=== PATIENT | female | born 1965 | race Caucasian/White ===

== ENCOUNTER → 2018-07-27 | Day surgery (SDC) | payer BC ==
[~2018-07-27] MED LIST: LIDOCAINE 2% MDV (20MG/ML) 20ML VIAL IV ONE; PROPOFOL 10 MG/ML VIAL IV ONE
--- NOTE | 2018-08-01 09:30 | Operative Note ---
DATE OF SURGERY: 07/27/2018 SURGEON: Godwin Dos Santos MD OPERATION: ESOPHAGOGASTRODUODENOSCOPY. INDICATIONS: This is a 53-year-old female with history of intermittent episodes of dysphagia to solids who presented for esophagogastroduodenoscopy. POSTOPERATIVE DIAGNOSES: 1. LA class C ulcerative distal esophagitis. 2. Erosive gastritis. 3. Duodenitis. ANESTHESIA: Sedation is per Anesthesia. Pulse oximetry was monitored throughout the procedure to maintain O2 saturation of 90% or greater. Supplemental oxygen was administered via nasal cannula. Cardiac and vital signs were monitored throughout the duration of the procedure, and they were stable. The procedure of esophagogastroduodenoscopy and risks and benefits of the procedure, including the risk of bleeding and perforation, among others, were explained to the patient who voiced understanding and agreed to have the procedure done. Physical examination was performed, and the patient was found stable for sedation. PROCEDURE: The patient was placed in the left lateral position. Sedation was initiated. A plastic bite block was inserted into the oral cavity. The Olympus [id number] gastroscope was introduced into the oral cavity and advanced to the proximal esophagus without difficulty. The esophageal mucosa was carefully examined upon introduction of the gastroscope. The proximal and mid esophageal mucosa appeared normal. In the distal esophagus there was LA class C esophagitis with no specific stricture. The gastroscope was then advanced into the stomach, and surveillance of the stomach revealed diffuse erythema with erosions along the gastric body and antrum. The gastroscope was then advanced to the descending duodenum without difficulty. The duodenal bulb and descending duodenum appeared normal. The gastroscope was then withdrawn into the stomach and retroflexion was performed. There were no other lesions noted. There was diffuse erythema along the duodenal bulb. Multiple duodenal and gastric as well as distal esophageal biopsies were obtained. She remained with stable vital signs and Gomez dilator size 60-Panamanian was passed into the stomach with minimal difficulty. The Gomez dilator was then withdrawn and the procedure was terminated. The patient tolerated procedure well without any immediate complications. The patient remained with stable vital signs and was transferred to the recovery room. RECOMMENDATIONS: 1. The patient is to be on omeprazole 20 mg p.o. b.i.d. 2. We will see her back in the office as needed. Thank you for allowing me to participate in the care of your patient. CC: DO CHENTE Talavera
== END | disposition home or self-care (01) ==
LOC: HOP 09:44
PROVIDERS: ATTEND Internal Medicine Gastroenterology
DX: R13.10 Dysphagia, unspecified (principal); K22.10 Ulcer of esophagus without bleeding; K29.60 Other gastritis without bleeding; K29.80 Duodenitis without bleeding

== ENCOUNTER 2019-01-27 10:10 | Emergency (ER) | payer SELFPAY ==
--- NOTE | 2019-01-27 12:06 | Emergency Department Record ---
History of Present Illness - General Chief Complaint: Ankle/Foot Injury Stated Complaint: LT FOOT INJURY Time Seen by Provider: 01/27/19 11:56 Source: Patient, RN notes reviewed Mode of Arrival: Ambulatory - History of Present Illness Initial Comments: inversion injury of the ankle, left, 9 days ago.Swollen lateral side. No knee pain now and knee ligaments intact.Previous injury 20 years ago andle fracture Injury: Ankle: Left Type of Injury: Eversion - Related Data Home Medications Medication Instructions Recorded Confirmed Last Taken Duloxetine HCl [Cymbalta] 60 mg PO DAILY 01/27/19 01/27/19 01/27/19 Gabapentin [Neurontin] 900 mg PO QHS 01/27/19 01/27/19 01/26/19 Allergies Allergy/AdvReac Type Severity Reaction Status Date / Time No Known Drug Intolerances Allergy Unknown PT UNSURE Verified 01/27/19 11:53 OF REACTION Review of Systems Reviewed: No additional complaints except as noted below Constitutional: Reports: As per HPI. Denies: Chills, Fever, Malaise, Night sweats, Weakness, Weight change Eyes: Reports: As per HPI. Denies: Eye discharge, Eye pain, Photophobia, Vision change ENT: Reports: As per HPI. Denies: Congestion, Dental pain, Ear pain, Epistaxis, Hearing loss, Throat pain Respiratory: Reports: As per HPI. Denies: Cough, Dyspnea, Hemoptysis, Stridor, Wheezes Cardiovascular: Reports: As per HPI. Denies: Arrhythmia, Chest pain, Dyspnea on exertion, Edema, Murmurs, Orthopnea, Palpitations, Paroxysmal nocturnal dyspnea, Rheumatic Fever, Syncope Endocrine: Reports: As per HPI. Denies: Fatigue, Heat or cold intolerance, Polydipsia, Polyuria Gastrointestinal: Reports: As per HPI. Denies: Abdominal pain, Constipation, Diarrhea, Hematemesis, Hematochezia, Melena, Nausea, Vomiting Genitourinary: Reports: As per HPI. Denies: Abnormal menses, Discharge, Dy spareunia, Dysuria, Frequency, Hematuria, Incontinence, Retention, Urgency Musculoskeletal: Reports: As per HPI, Other (ankle pain left). Denies: Arthralgia, Back pain, Gout, Joint swelling, Myalgia, Neck pain Skin: Reports: As per HPI. Denies: Bruising, Change in color, Change in hair/nails, Lesions, Pruritus, Rash Neurological: Reports: As per HPI. Denies: Abnormal gait, Confusion, Headache, Numbness, Paresthesias, Seizure, Tingling, Tremors, Vertigo, Weakness Psychiatric: Reports: As per HPI. Denies: Anxiety, Auditory hallucinations, Depression, Homicidal thoughts, Suicidal thoughts, Visual hallucinations Hematological/Lymphatic: Reports: As per HPI. Denies: Anemia, Blood Clots, Easy bleeding, Easy bruising, Swollen glands Past Medical History - SOCIAL HISTORY Smoking Status: Former smoker - RESPIRATORY Hx Respiratory Disorders: No - CARDIOVASCULAR Hx Cardio Disorders: No - NEURO Hx Neuro Disorders: No - GI Hx GI Disorders: Yes Hx Reflux: Yes Comment:: difficulty/painful swallowing - Hx Genitourinary Disorders: No Comment:: menopausal - ENDOCRINE Hx Endocrine Disorders: Yes Comment:: osteopenia - MUSCULOSKELETAL Hx Musculoskeletal Disorders: Yes Hx Arthritis: Yes Hx Fibromyalgia: Yes - PSYCH Hx Psych Problems: Yes Hx Anxiety: Yes Hx Depression: Yes - HEMATOLOGY/ONCOLOGY Hx Hematology/Oncology Disorders: Yes Hx Bruising: Yes Hx Blood Transfusions: No Physical Exam - General General Appearance: Alert, Oriented x3, Cooperative, No acute distress - Head Head exam: Normal inspection - Eye Eye exam: Normal appearance, PERRL Pupils: Normal accommodation - ENT ENT exam: Normal exam, Mucous membranes moist, Normal external ear exam, Normal orophraynx, TM's normal bilaterally Ear exam: Normal external inspection. negative: External canal tenderness Nasal Exam: Normal inspection. negative: Discharge, Sinus tenderness Mouth exam: Normal external inspection, Tongue normal Teeth exam: Normal inspection. negative: Dental caries Throat exam: Normal inspection. negative: Tonsillar erythema, Tonsillar exudate - Neck Neck exam: Normal inspection, Full ROM. negative: Tenderness - Respiratory Respiratory exam: Normal lung sounds bilaterally. negative: Respiratory distress - Cardiovascular Cardiovascular Exam: Regular rate, Normal rhythm, Normal heart sounds - GI/Abdominal GI/Abdominal exam: Soft, Normal bowel sounds. negative: Tenderness - Rectal Rectal exam: Deferred - exam: Deferred - Extremities Extremities exam: Normal capillary refill. negative: Tenderness (left lateral ankle pain and swelling) - Back Back exam: Reports: Normal inspection, Full ROM. Denies: Muscle spasm, Rash noted, Tenderness - Neurological Neurological exam: Alert, Normal gait, Oriented X3, Reflexes normal - Psychiatric Psychiatric exam: Normal affect, Normal mood - Skin Skin exam: Dry, Intact, Normal color, Warm Course - Reevaluation(s) Reevaluation #1: patient refuses a CT scan of ankle she [facility] and risks discussed. 01/27/19 13:06 Reevaluation #2: patient is leaving per [place] and will not follow up with anyone in [place] and she said she will follow up with relative 's Dr in [place] 01/27/19 13:08 Disposition Clinical Impression: Left calcaneal fracture Qualifiers: Encounter type: initial encounter Calcaneus location: unspecified portion of calcaneus Fracture type: closed Fracture alignment: nondisplaced Qualified Code(s): S92.002A - Unspecified fracture of left calcaneus, initial encounter for closed fracture Ankle sprain Qualifiers: Encounter type: initial encounter Involved ligament of ankle: anterior talofibular ligament Laterality: left Qualified Code(s): S93.492A - Sprain of other ligament of left ankle, initial encounter Disposition: Home, Self-Care Condition: (1) Good Instructions: Ankle Fracture (ED), Ankle Sprain (ED) Additional Instructions: naprosyn for pain twice a day she said she has the medication already elevate foot follow up with family DR in [place] in one week wear OCL splint till rechecked Forms: Patient Portal Access Time of Disposition: 13:12 Quality - Quality Measures Quality Measures: N/A - Blood Pressure Screening Does Patient Have Any of the Following: No Blood Pressure Classification: Pre-Hypertensive BP Reading Systolic Measurement: 108 Diastolic Measurement: 81 Screening for High Blood Pressure: < Pre-Hypertensive BP, F/U Documented > [[id number]] Pre-Hypertensive Follow-up Interventions: Referral to alternative/primary care provider.
--- NOTE | 2019-01-29 08:53 | RADIOLOGY REPORT ---
EXAMINATION: Left ankle 3 views. CLINICAL HISTORY: Lateral pain 10 days post fall. TECHNIQUE: Three views of the left ankle. COMPARISON: None. ENCOUNTER: Initial. FINDINGS: There is normal bone mineralization. Visualized on the AP view only is cortical irregularity involving the lateral aspect of the calcaneus. Fracture is not excluded. Additionally, on the lateral view there is apparent cortical step- off involving the anterior dorsal aspect of the talus raising possibility of fracture. No other fracture is seen nor is there dislocation. The ankle mortise joint is symmetric. There is anterolateral soft tissue swelling. IMPRESSION: 1. Possible minimally displaced fracture of the dorsal distal aspect of the talus. Additionally, on the AP view, there is cortical irregularity involving the lateral aspects of the calcaneus. It is indeterminate whether this is the same area of the calcaneus. An additional calcaneal fracture would be difficult to exclude. 2. Anterolateral soft tissue swelling. [facility]
== END 2019-01-27 13:31 | disposition home or self-care (01) ==
LOC: ER 10:10
DX: S92.002A Unspecified fracture of left calcaneus, initial encounter for closed fracture (principal); S93.492A Sprain of other ligament of left ankle, initial encounter; X50.0XXA Overexertion from strenuous movement or load, initial encounter
CPT/HCPCS: 99283